=== PATIENT | female | born 1955 | race Caucasian/White ===

== ENCOUNTER 2017-05-28 16:19 | Emergency (ER) | payer BC ==
[~2017-05-28] VITALS: Wt 126.0 kg
[~2017-05-28 16:19] MED LIST: ACET-141 PO; BACTRIM PO; CEPH-443 PO
[2017-05-28] MEDS ORDERED: FAMOTIDINE 20 MG TAB PO STA (17:17)
[2017-05-28] MEDS ORDERED: SOD CHLORIDE 0.9% 500 ML IV STA (17:17)
[2017-05-28] MEDS ORDERED: ONDANSETRON 4 MG INJ IV STA (17:17)
[2017-05-28] MEDS ORDERED: morphine 4 MG/ML VIAL IV STA (17:17)
[2017-05-28] MEDS ORDERED: LIDOCAINE/MYLANTA 40 ML BTL PO STA (17:17)
[2017-05-28 17:36] LABS: BASOPHILS % 0.5 % (0.0-2.0); EOSINOPHILS # 0.2 10^3/ul (0.0-0.5); EOSINOPHILS % 2.6 % (0.0-7.0); HEMATOCRIT 40.4 % (37.0-47.0); LYMPHOCYTES % 32.3 % (15.0-51.0); MEAN CORPUSCULAR HEMOGLOBIN 29.8 pg (29.0-33.0); MEAN CORPUSCULAR HGB CONC 32.2 g/dl (32.0-37.0); MEAN CORPUSCULAR VOLUME 92.7 fl (82.0-101.0); MEAN PLATELET VOLUME 11.1 fl (7.4-10.4); MONOCYTE # 0.7 10^3/ul (0.3-0.9); MONOCYTES % 11.3 % (0.0-11.0); NEUTROPHIL # 3.3 10^3/ul (1.6-7.5); NEUTROPHILS % 53.1 % (39.0-77.0); PLATELET COUNT 258 10^3/UL (140-415); RED BLOOD COUNT 4.36 10^6/ul (4.20-5.40); RED CELL DISTRIBUTION WIDTH 14.1 % (11.5-14.5); WHITE BLOOD COUNT 6.2 10^3/ul (4.8-10.8)
[2017-05-28 17:57] LABS: PROTIME 13.2 Sec (12.2-14.2)
[2017-05-28 17:58] LABS: PARTIAL THROMBOPLASTIN TIME 24.1 Sec (25.0-35.0)
[2017-05-28 18:00] LABS: ALANINE AMINOTRANSFERASE 57 IU/L (13-69); ALBUMIN 4.2 g/dl (3.3-4.9); ALBUMIN/GLOBULIN RATIO 1.23; ALKALINE PHOSPHATASE 96 IU/L (42-121); ANION GAP 16 (8-16); ASPARTATE AMINO TRANSFERASE 21 IU/L (15-46); BILIRUBIN,INDIRECT 0.4 mg/dl (0-1.1); BILIRUBIN,TOTAL 0.4 mg/dl (0.2-1.3); BLOOD UREA NITROGEN 11 mg/dl (7-20); CALCIUM 9.4 mg/dl (8.4-10.2); CARBON DIOXIDE 31 mmol/L (21-31); CHLORIDE 101 mmol/L (97-110); CREATININE 0.73 mg/dl (0.44-1.00); GLUCOSE 117 mg/dl (70-220); POTASSIUM 3.3 mmol/L (3.5-5.1); SODIUM 145 mmol/L (135-144); TOTAL PROTEIN 7.6 g/dl (6.1-8.1)
[2017-05-28] MEDS ORDERED: FAMO-96 PO (18:01)
[2017-05-28] MEDS ORDERED: MAG355OR14 PO (18:01)
[2017-05-28 18:10] LABS: TROPONIN-I < 0.012 ng/ml (0.00-0.12)
--- NOTE | 2017-05-28 19:01 | RADRPT ---
PROCEDURE: XR Chest. CLINICAL INDICATION: Abdominal Pain TECHNIQUE: Single frontal view of the chest was obtained. COMPARISON: None. FINDINGS: The cardiomediastinal silhouette is mildly enlarged. Pulmonary vasculature is mildly prominent. Th ere is probable mild dependent atelectasis.. No signs of pleural fluid or pneumothorax are seen. The osseous structures and soft tissues are unre markable. IMPRESSION: 1. Mild cardiomegaly. Pulmonary vascular congestion. 2. Probable mild bibasilar atelectasis. Assessment partially limited by patient body habitus. No definite consolidation. RPTAT: DD .Alexi Dacosta MD, Date Time Electronically viewed and signed by .Alexi Dacosta MD, on 05/28/2017 19:01 .T/
[2017-05-28 19:27] VITALS: BP 153/74; PULSE 77; RESP 14; TEMP 98.7
--- NOTE | 2017-05-28 23:10 | ERD ---
ER Documentation Chief Complaint Date/Time DATE: 05/28/17 TIME: 23:06 Chief Complaint ABD PAIN X 3 DAYS WITH N/V HPI 62-year-old female complaining of pain radiating up the middle of her chest that she describes as burning. She has had this for 1 month but now it is becoming more frequent. For the past 3 days it has been constant. It has been associated with nonbloody and nonbilious vomiting. She states that when she drinks water, the pain gets worse. She feels acid coming up into her mouth. She denies any associated shortness of breath, dizziness, diaphoresis, or significant abdominal pain. No fevers, chills, dysuria. She denies any NSAID use. No melena or hematochezia ROS All systems reviewed and are negative except as per history of present illness. Medications Home Meds Active Scripts Mag Hydrox/Al Hydrox/Simeth (Maalox Advanced Suspension) 355 Ml Oral.susp, 30 ML PO 5 TIMES DAILY, #355 ML prn acid reflux Prov:LUKAS PEREYRA MD 05/28/17 Famotidine* (Pepcid*) 20 Mg Tablet, 20 MG PO BID for 30 Days, TAB Prov:LUKAS PEREYRA MD 05/28/17 Discontinued Scripts Acetaminophen* (Acetaminophen*) 500 MG Extra Strength Tablet, 1000 MG PO Q6H Y for PAIN AND OR ELEVATED TEMP, #30 TAB Prov:NEL STALEY 06/21/16 Cephalexin* (Keflex*) 500 Mg Capsule, 500 MG PO Q6, #28 CAP Prov:NEL STALEY 06/21/16 Trimethoprim-Sulfamethoxazole* (Bactrim*) 400-80 Mg Tab, 1 TAB PO BID, #20 TAB Prov:NEL STALEY 06/21/16 Allergies Allergies: Coded Allergies: No Known Allergy (Unverified , 05/28/17) PMhx/Soc History of Surgery: Yes (TONSILLECTOMY, LASER SX FOR VEINS) Anesthesia Reaction: No Hx Neurological Disorder: No Hx Respiratory Disorders: Yes (ASTHMA) Hx Cardiac Disorders: No Hx Psychiatric Problems: No Hx Miscellaneous Medical Probl: Yes (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 Neck: Full range of motion..~ No meningismus. Resp: Clear to auscultation bilaterally Cardio: Regular rate and rhythm, no murmurs Abd: Soft, non tender, non distended. Normal bowel sounds Skin: No petechiae or rashes Back: No midline or flank tenderness Ext: No cyanosis, or edema Neur: Awake and alert Psych: Normal Mood and Affect Result Diagram: 05/28/17 1715 05/28/17 1715 Results 24 hrs Laboratory Tests Test 05/28/17 17:15 White Blood Count 6.210^3/ul Red Blood Count 4.3610^6/ul Hemoglobin 13.0g/dl Hematocrit 40.4% Mean Corpuscular Volume 92.7fl Mean Corpuscular Hemoglobin 29.8pg Mean Corpuscular Hemoglobin Concent 32.2g/dl Red Cell Distribution Width 14.1% Platelet Count 02871^3/UL Mean Platelet Volume 11.1fl Neutrophils % 53.1% Lymphocytes % 32.3% Monocytes % 11.3% Eosinophils % 2.6% Basophils % 0.5% Nucleated Red Blood Cells % 0.0/100WBC Neutrophils # 3.310^3/ul Lymphocytes # 2.010^3/ul Monocytes # 0.710^3/ul Eosinophils # 0.210^3/ul Basophils # 0.010^3/ul Nucleated Red Blood Cells # 0.010^3/ul Prothrombin Time 13.2Sec Prothrombin Time Ratio 1.0 INR International Normalized Ratio 1.00 Activated Partial Thromboplast Time 24.1Sec Sodium Level 145mmol/L Potassium Level 3.3mmol/L Chloride Level 101mmol/L Carbon Dioxide Level 31mmol/L Anion Gap 16 Blood Urea Nitrogen 11mg/dl Creatinine 0.73mg/dl Glucose Level 117mg/dl Calcium Level 9.4mg/dl Total Bilirubin 0.4mg/dl Direct Bilirubin 0.00mg/dl Indirect Bilirubin 0.4mg/dl Aspartate Amino Transf (AST/SGOT) 21IU/L Alanine Aminotransferase (ALT/SGPT) 57IU/L Alkaline Phosphatase 96IU/L Troponin I < 0.012ng/ml Total Protein 7.6g/dl Albumin 4.2g/dl Globulin 3.40g/dl Albumin/Globulin Ratio 1.23 Lipase 103U/L Current Medications Medications (Trade) Dose Ordered Sig/Anjelica Route PRN Reason Start Time Stop Time Status Last Admin Dose Admin Sodium Chloride (NS) 500 ml @ 500 mls/hr Q1H STAT IV 05/28/17 17:17 05/28/17 18:16 DC 05/28/17 17:41 Morphine Sulfate (morphine) 4 mg ONCE STAT IV 05/28/17 17:17 05/28/17 17:19 DC Ondansetron HCl (Zofran Inj) 4 mg ONCE STAT IV 05/28/17 17:17 05/28/17 17:19 DC 05/28/17 17:40 Famotidine (Pepcid) 20 mg ONCE STAT PO 05/28/17 17:17 05/28/17 17:19 DC 05/28/17 17:40 Miscellaneous Medication (Gi Cocktail (2)) 40 ml ONCE STAT PO 05/28/17 17:17 05/28/17 17:19 DC 05/28/17 17:44 Procedures/MDM EKG: Rate/Rhythm: Normal Sinus Rhythm QRS, ST, T-waves: Nonspecific T-wave abnormality, no changes consistent w/ acute ischemia Impression: No evidence of ischemia or arrhythmia Chest x-ray shows no significant abnormalities Labs CBC: no anemia or evidence of infection CMP: Mild hypernatremia and mild hypokalemia, likely secondary to vomiting and mild dehydration. No evidence of significant electrolyte abnormality, renal failure, hypoglycemia, liver failure, or biliary obstruction Lipase: no evidence of pancreatitis Troponin within normal limits MDM Patient is presenting with burning chest pain, likely secondary to acid reflux. Her vitals are stable and she is afebrile. She is very well-appearing on exam. I have a low suspicion for aortic dissection, esophageal tear, acute coronary syndrome, or pericarditis. I do not suspect pulmonary embolism. Her initial labs were all normal other than evidence of mild dehydration. Pepcid and GI cocktail were given with significant improvement in her symptoms. Patient was tolerating fluids by mouth in the ED without any further vomiting or complaints. I believe the patient is stable for discharge at this time. Dietary restrictions were discussed. I will give her prescription for Pepcid and Maalox. Return precautions were given. Patient was encouraged to follow- up with her primary care doctor in 1-2 days. Patient's blood pressure was elevated (>120/80) but appears stable without evidence of hypertension emergency or urgency. The patient was counseled about the risks of hypertension and urged to pursue outpatient monitoring and therapy within a week with their primary care physician. Departure Diagnosis: Primary Impression: Burning chest pain Additional Impression: Acid reflux Esophagitis presence: esophagitis presence not specified Qualified Code: K21.9 - Gastroesophageal reflux disease, esophagitis presence not specified Condition: Stable Patient Instructions: Gastritis (Adult) LUKAS PEREYRA MD May 28, 2017 23:10
== END 2017-05-28 19:40 | disposition home or self-care (01) ==
LOC: E/R 16:19
DX: R07.9 Chest pain, unspecified (principal); J45.909 Unspecified asthma, uncomplicated; K21.9 Gastro-esophageal reflux disease without esophagitis; R11.2 Nausea with vomiting, unspecified
CPT/HCPCS: 71010; 80053; 83690; 84484; 85025; 85610; 85730; J2405; J7040; Z7610; 36415; 93005; 96374; 96375; J2270

== ENCOUNTER 2017-12-30 19:48 | Inpatient (IN) | END 2018-01-12 16:10 | disposition home or self-care (01) | DRG 163 ==